=== PATIENT | female | born 1975 | race Caucasian/White ===

== ENCOUNTER 2020-05-06 17:41 | Inpatient (IN) | payer OTHER ==
[2020-05-06 18:38] VITALS: BMI 46.4
[2020-05-06] MEDS ORDERED: BISMUTH SUBSALICYLATE 524 MG/30 ML UD PO PRN (18:39)
[2020-05-06] MEDS ORDERED: ACETAMINOPHEN 325 MG TABLET (FP) PO PRN ×2 (18:39)
[2020-05-06] MEDS ORDERED: chlordiazePOXIDE HCL 25 MG CAPSULE PO PRN (18:39)
[2020-05-06] MEDS ORDERED: MAGNESIUM CITRATE 300 ML BOTTLE PO PRN (18:39)
[2020-05-06] MEDS ORDERED: IBUPROFEN 400 MG TABLET (FP) PO PRN (18:39)
[2020-05-06] MEDS ORDERED: NICOTINE POLACRILEX 4 MG GUM BUC PRN (18:39)
[2020-05-06] MEDS ORDERED: MENTHOL/PHENOL 1 EACH UD MM PRN (18:39)
[2020-05-06] MEDS ORDERED: ONDANSETRON *ODT* 4 MG TABLET SL PRN (18:39)
[2020-05-06] MEDS ORDERED: MAG HYDROX/AL HYDROX/SIMETH 30 ML UNIT-DOSE CUP PO PRN (18:39)
[2020-05-06] MEDS ORDERED: MAGNESIUM HYDROX 2400MG/30ML ORAL SUSPENSION 30 ML CUP PO PRN (18:39)
[2020-05-06] MEDS ORDERED: INSULIN (NOVOLOG) ASPART 100 UNITS/ML 10ML VIAL SQ ONE (21:32)
[2020-05-06] MEDS: GABAPENTIN 400 MG CAPSULE PO SCH (21:38)
[2020-05-06] MEDS: THIAMINE HCL 100 MG TABLET (FP) PO SCH (21:38)
[2020-05-06] MEDS: ATORVASTATIN CA 40 MG TABLET (FP) PO SCH (21:38)
[2020-05-06] MEDS: hydrOXYzine PAMOATE 25 MG CAPSULE (FP) PO SCH (21:39)
[2020-05-06] MEDS: chlordiazePOXIDE HCL 25 MG CAPSULE PO SCH (22:09)
[2020-05-06] MEDS: MELATONIN 5 MG TABLETS PO SCH (22:09)
[2020-05-06] MEDS: INSULIN SLIDING SCALE (NOVOLOG) 1 VIAL SQ SCH (22:15)
[2020-05-06] MEDS: NYSTATIN POWDER 100,000 UNITS/GM - 15 GM TOPICAL POWDER TP SCH (22:42)
[2020-05-07] MEDS: chlordiazePOXIDE HCL 25 MG CAPSULE PO SCH ×4 (06:59→22:40)
[2020-05-07] MEDS: INSULIN SLIDING SCALE (NOVOLOG) 1 VIAL SQ SCH ×3 (07:00→17:29)
[2020-05-07] MEDS ORDERED: metFORMIN HCL 500 MG TABLET (FP) PO SCH (07:00)
[2020-05-07] MEDS: GABAPENTIN 400 MG CAPSULE PO SCH ×3 (07:00→22:39)
[2020-05-07] MEDS: hydrOXYzine PAMOATE 25 MG CAPSULE (FP) PO SCH ×5 (07:01→22:39)
[2020-05-07] MEDS ORDERED: INSULIN SLIDING SCALE (NOVOLOG) 1 VIAL SQ ONE ×3 (07:48→17:10)
[2020-05-07] MEDS: PRENATAL VITAMINS W/ FOLIC ACID TABLET (FP) PO SCH (10:14)
[2020-05-07] MEDS: NYSTATIN POWDER 100,000 UNITS/GM - 15 GM TOPICAL POWDER TP SCH (10:14)
[2020-05-07 10:39] LABS: POTASSIUM 3.9 mmol/L (3.5-5.1)
[2020-05-07 10:42] LABS: HEMATOCRIT 35.1 % (32.4-45.2); HEMOGLOBIN 11.5 GM/dL (10.7-15.3); MCH 27.1 pg (25.7-33.7); MCHC 32.8 g/dl (32.0-36.0); MEAN CELL VOLUME 82.5 fl (80-96); MEAN PLT VOLUME 9.4 fl (7.5-11.1); PLATELET COUNT 240 K/MM3 (134-434); RBC 4.26 M/mm3 (3.60-5.2); RDW 15.1 % (11.6-15.6); WHITE BLOOD COUNT 5.2 K/mm3 (4.0-10.0)
[2020-05-07 10:49] LABS: TOT PROT 5.8 g/dl (6.4-8.2)
[2020-05-07 10:50] LABS: ALBUMIN 2.8 g/dl (3.4-5.0); BILIRUBIN,TOTAL 0.3 mg/dL (0.2-1); BLOOD UREA NITROGEN 9.2 mg/dL (7-18); CALCIUM 8.7 mg/dL (8.5-10.1)
[2020-05-07] MEDS ORDERED: INSULIN (NOVOLOG) ASPART 100 UNITS/ML 10ML VIAL SQ ONE (16:37)
[2020-05-07] MEDS ORDERED: metFORMIN HCL 500 MG TABLET (FP) PO ONE (16:41)
[2020-05-07] MEDS: ATORVASTATIN CA 40 MG TABLET (FP) PO SCH (22:39)
[2020-05-07] MEDS: INSULIN (LEVEMIR) 100 UNITS/ML UNITS SQ SCH (22:39)
[2020-05-07] MEDS: MELATONIN 5 MG TABLETS PO SCH (22:39)
[2020-05-07] MEDS: THIAMINE HCL 100 MG TABLET (FP) PO SCH (22:39)
[2020-05-08] MEDS: chlordiazePOXIDE HCL 25 MG CAPSULE PO SCH ×4 (06:59→22:42)
[2020-05-08] MEDS: GABAPENTIN 400 MG CAPSULE PO SCH ×3 (07:00→22:41)
[2020-05-08] MEDS: metFORMIN HCL 500 MG TABLET (FP) PO SCH ×2 (07:00→17:11)
[2020-05-08] MEDS: hydrOXYzine PAMOATE 25 MG CAPSULE (FP) PO SCH ×5 (07:00→22:41)
[2020-05-08] MEDS: INSULIN (NOVOLOG) ASPART 100 UNITS/ML 10ML VIAL SQ SCH ×3 (08:06→17:11)
[2020-05-08] MEDS ORDERED: INSULIN SLIDING SCALE (NOVOLOG) 1 VIAL SQ ONE ×3 (08:22→16:59)
[2020-05-08] MEDS: NYSTATIN POWDER 100,000 UNITS/GM - 15 GM TOPICAL POWDER TP SCH (10:13)
[2020-05-08] MEDS: PRENATAL VITAMINS W/ FOLIC ACID TABLET (FP) PO SCH (10:14)
[2020-05-08] MEDS: THIAMINE HCL 100 MG TABLET (FP) PO SCH (22:41)
[2020-05-08] MEDS: ATORVASTATIN CA 40 MG TABLET (FP) PO SCH (22:41)
[2020-05-08] MEDS: MELATONIN 5 MG TABLETS PO SCH (22:42)
[2020-05-08] MEDS: INSULIN (LEVEMIR) 100 UNITS/ML UNITS SQ SCH (22:42)
[2020-05-09] MEDS ORDERED: chlordiazePOXIDE HCL 10 MG CAPSULE PO PRN
[2020-05-09] MEDS ORDERED: INSULIN SLIDING SCALE (NOVOLOG) 1 VIAL SQ ONE ×3 (04:15→17:00)
[2020-05-09] MEDS: GABAPENTIN 400 MG CAPSULE PO SCH ×3 (06:35→23:17)
[2020-05-09] MEDS: chlordiazePOXIDE HCL 10 MG CAPSULE PO SCH ×5 (06:36→23:17)
[2020-05-09] MEDS: hydrOXYzine PAMOATE 25 MG CAPSULE (FP) PO SCH ×5 (06:36→23:18)
[2020-05-09] MEDS: INSULIN (NOVOLOG) ASPART 100 UNITS/ML 10ML VIAL SQ SCH ×3 (06:36→17:05)
[2020-05-09] MEDS: metFORMIN HCL 500 MG TABLET (FP) PO SCH ×2 (06:36→18:10)
[2020-05-09 10:09] LABS: SARS-CoV-2 NAA Not Detected (Not Detected)
[2020-05-09] MEDS: NYSTATIN POWDER 100,000 UNITS/GM - 15 GM TOPICAL POWDER TP SCH (10:30)
[2020-05-09] MEDS: PRENATAL VITAMINS W/ FOLIC ACID TABLET (FP) PO SCH (10:30)
[2020-05-09] MEDS: INSULIN (LEVEMIR) 100 UNITS/ML UNITS SQ SCH (23:17)
[2020-05-09] MEDS: ATORVASTATIN CA 40 MG TABLET (FP) PO SCH (23:17)
[2020-05-09] MEDS: MELATONIN 5 MG TABLETS PO SCH (23:17)
[2020-05-09] MEDS: THIAMINE HCL 100 MG TABLET (FP) PO SCH (23:18)
[2020-05-10] MEDS: GABAPENTIN 400 MG CAPSULE PO SCH ×3 (06:54→22:23)
[2020-05-10] MEDS: hydrOXYzine PAMOATE 25 MG CAPSULE (FP) PO SCH ×5 (06:54→22:23)
[2020-05-10] MEDS: chlordiazePOXIDE HCL 10 MG CAPSULE PO SCH ×2 (06:54→17:52)
[2020-05-10] MEDS: INSULIN (NOVOLOG) ASPART 100 UNITS/ML 10ML VIAL SQ SCH ×3 (08:03→17:59)
[2020-05-10] MEDS: metFORMIN HCL 500 MG TABLET (FP) PO SCH ×2 (08:03→17:52)
[2020-05-10] MEDS: PRENATAL VITAMINS W/ FOLIC ACID TABLET (FP) PO SCH (09:50)
[2020-05-10] MEDS: METHOCARBAMOL 500 MG TABLET PO PRN ×2 (09:52→22:29)
[2020-05-10] MEDS: NYSTATIN POWDER 100,000 UNITS/GM - 15 GM TOPICAL POWDER TP SCH (09:52)
[2020-05-10] MEDS: MELATONIN 5 MG TABLETS PO SCH (22:22)
[2020-05-10] MEDS: INSULIN (LEVEMIR) 100 UNITS/ML UNITS SQ SCH (22:23)
[2020-05-10] MEDS: ATORVASTATIN CA 40 MG TABLET (FP) PO SCH (22:23)
[2020-05-10] MEDS: THIAMINE HCL 100 MG TABLET (FP) PO SCH (22:23)
[2020-05-11] MEDS ORDERED: chlordiazePOXIDE HCL 10 MG CAPSULE PO ONE (05:00)
[2020-05-11] MEDS: GABAPENTIN 400 MG CAPSULE PO SCH (05:37)
[2020-05-11] MEDS: hydrOXYzine PAMOATE 25 MG CAPSULE (FP) PO SCH ×2 (05:37→09:40)
[2020-05-11] MEDS: metFORMIN HCL 500 MG TABLET (FP) PO SCH (07:29)
[2020-05-11] MEDS: INSULIN (NOVOLOG) ASPART 100 UNITS/ML 10ML VIAL SQ SCH ×2 (08:01→12:09)
[2020-05-11] MEDS ORDERED: INSULIN SLIDING SCALE (NOVOLOG) 1 VIAL SQ ONE ×2 (08:02→11:36)
[2020-05-11] MEDS: NYSTATIN POWDER 100,000 UNITS/GM - 15 GM TOPICAL POWDER TP SCH (09:38)
[2020-05-11] MEDS: PRENATAL VITAMINS W/ FOLIC ACID TABLET (FP) PO SCH ×2 (09:39→09:42)
[2020-05-11 09:41] VITALS: BP 96/54; PULSE 71; TEMP 96.8
[2020-05-11] MEDS ORDERED: NIFEdipine E.R. 30 MG TABLET PO SCH ×2 (11:45)
== END 2020-05-11 12:25 | disposition other institution (70) | DRG 774 ==
LOC: YASAS 17:41 → Y3N 19:24
PROVIDERS: ADMIT Allergy & Immunology; ATTEND Allergy & Immunology
PROC: HZ2ZZZZ Detoxification Services for Substance Abuse Treatment (ICD-10-PCS; principal; 2020-05-06)
DX: F10.230 Alcohol dependence with withdrawal, uncomplicated (principal); F14.20 Cocaine dependence, uncomplicated; F17.210 Nicotine dependence, cigarettes, uncomplicated; G62.9 Polyneuropathy, unspecified; E78.5 Hyperlipidemia, unspecified; I10 Essential (primary) hypertension; J45.909 Unspecified asthma, uncomplicated; K21.9 Gastro-esophageal reflux disease without esophagitis; E11.9 Type 2 diabetes mellitus without complications; Z79.4 Long term (current) use of insulin; Z88.8 Allergy status to other drugs, medicaments and biological substances
CPT/HCPCS: 36415; 80053; 81025; 82962; 85027; 86593; 86780; 93005; 93010; C9803; U0003; U0005

== ENCOUNTER 2020-05-11 12:33 | Inpatient (IN) | payer OTHER ==
[2020-05-11] MEDS ORDERED: ACETAMINOPHEN 325 MG TABLET (FP) PO PRN (13:18)
[2020-05-11] MEDS ORDERED: guaiFENesin 200 MG/10 ML 10 ML UNIT-DOSE CUPS PO PRN (13:18)
[2020-05-11] MEDS ORDERED: MENTHOL/PHENOL 1 EACH UD MM PRN (13:18)
[2020-05-11] MEDS ORDERED: MAG HYDROX/AL HYDROX/SIMETH 30 ML UNIT-DOSE CUP PO PRN (13:18)
[2020-05-11] MEDS ORDERED: MAGNESIUM HYDROX 2400MG/30ML ORAL SUSPENSION 30 ML CUP PO PRN (13:18)
[2020-05-11] MEDS ORDERED: LOPERAMIDE HCL 2 MG CAPSULE PO PRN (13:18)
[2020-05-11] MEDS ORDERED: MAGNESIUM CITRATE 300 ML BOTTLE PO PRN (13:18)
[2020-05-11] MEDS ORDERED: P-EPHED 60MG/TRIPROLIDI 2.5MG TABLET PO PRN (13:18)
[2020-05-11] MEDS: INSULIN (NOVOLOG) ASPART 100 UNITS/ML 10ML VIAL SQ SCH (17:09)
[2020-05-11] MEDS: metFORMIN HCL 500 MG TABLET (FP) PO SCH (17:09)
[2020-05-11] MEDS: INSULIN (LEVEMIR) 100 UNITS/ML UNITS SQ SCH (21:47)
[2020-05-11] MEDS: ATORVASTATIN CA 40 MG TABLET (FP) PO SCH (21:48)
[2020-05-11] MEDS: THIAMINE HCL 100 MG TABLET (FP) PO SCH (21:48)
[2020-05-11] MEDS: GABAPENTIN 400 MG CAPSULE PO SCH (21:48)
[2020-05-11] MEDS: METHOCARBAMOL 500 MG TABLET PO PRN (21:49)
[2020-05-11] MEDS: MELATONIN 5 MG TABLETS PO SCH (21:50)
[2020-05-12] MEDS: metFORMIN HCL 500 MG TABLET (FP) PO SCH ×2 (06:50→17:03)
[2020-05-12] MEDS: GABAPENTIN 400 MG CAPSULE PO SCH ×3 (06:50→21:35)
[2020-05-12] MEDS: hydrOXYzine PAMOATE 25 MG CAPSULE (FP) PO PRN ×2 (06:52→14:34)
[2020-05-12] MEDS: METHOCARBAMOL 500 MG TABLET PO PRN ×2 (06:52→17:04)
[2020-05-12] MEDS: INSULIN (NOVOLOG) ASPART 100 UNITS/ML 10ML VIAL SQ SCH ×4 (07:42→21:38)
[2020-05-12] MEDS: NICOTINE 7 MG/24 HOURS TOPICAL PATCH TD SCH (09:54)
[2020-05-12] MEDS: NICOTINE POLACRILEX 2 MG GUM BUC PRN (09:54)
[2020-05-12] MEDS: PRENATAL VITAMINS W/ FOLIC ACID TABLET (FP) PO SCH (09:54)
[2020-05-12] MEDS: NIFEdipine E.R. 30 MG TABLET PO SCH (11:16)
[2020-05-12] MEDS: LITHIUM CARBONATE 300 MG CAPSULE PO SCH ×2 (11:46→21:36)
[2020-05-12 13:55] LABS: HIV INTERPRETATION NEGATIVE (NEGATIVE)
[2020-05-12] MEDS: THIAMINE HCL 100 MG TABLET (FP) PO SCH (21:35)
[2020-05-12] MEDS: MELATONIN 5 MG TABLETS PO SCH (21:35)
[2020-05-12] MEDS: ATORVASTATIN CA 40 MG TABLET (FP) PO SCH (21:35)
[2020-05-12] MEDS: MIRTAZAPINE 30 MG TABLET PO SCH (21:36)
[2020-05-12] MEDS: IBUPROFEN 400 MG TABLET (FP) PO PRN (21:36)
[2020-05-12] MEDS: INSULIN (LEVEMIR) 100 UNITS/ML UNITS SQ SCH (21:41)
[2020-05-13] MEDS: metFORMIN HCL 500 MG TABLET (FP) PO SCH ×2 (07:30→17:40)
[2020-05-13] MEDS: GABAPENTIN 400 MG CAPSULE PO SCH ×3 (07:30→21:27)
[2020-05-13] MEDS: INSULIN (NOVOLOG) ASPART 100 UNITS/ML 10ML VIAL SQ SCH (07:32)
[2020-05-13] MEDS: PRENATAL VITAMINS W/ FOLIC ACID TABLET (FP) PO SCH (09:50)
[2020-05-13] MEDS: NICOTINE 7 MG/24 HOURS TOPICAL PATCH TD SCH (09:50)
[2020-05-13] MEDS: NIFEdipine E.R. 30 MG TABLET PO SCH (09:51)
[2020-05-13] MEDS: LITHIUM CARBONATE 300 MG CAPSULE PO SCH ×2 (09:51→21:27)
[2020-05-13] MEDS: hydrOXYzine PAMOATE 25 MG CAPSULE (FP) PO PRN ×2 (09:52→21:29)
[2020-05-13] MEDS: IBUPROFEN 400 MG TABLET (FP) PO PRN (09:52)
[2020-05-13] MEDS: METHOCARBAMOL 500 MG TABLET PO PRN ×2 (09:52→21:28)
[2020-05-13] MEDS: INSULIN SLIDING SCALE (NOVOLOG) 1 VIAL SQ SCH ×3 (11:44→22:11)
[2020-05-13] MEDS ORDERED: INSULIN (NOVOLOG) ASPART 100 UNITS/ML 10ML VIAL ONE ×3 (11:44→22:07)
[2020-05-13] MEDS ORDERED: PT OWN MED DRAWER 7, Y5N ONE (19:32)
[2020-05-13] MEDS: THIAMINE HCL 100 MG TABLET (FP) PO SCH (21:27)
[2020-05-13] MEDS: MIRTAZAPINE 30 MG TABLET PO SCH (21:27)
[2020-05-13] MEDS: ATORVASTATIN CA 40 MG TABLET (FP) PO SCH (21:27)
[2020-05-13] MEDS: MELATONIN 5 MG TABLETS PO SCH (21:27)
[2020-05-13] MEDS: INSULIN (LEVEMIR) 100 UNITS/ML UNITS SQ SCH (22:15)
[2020-05-14 06:52] VITALS: TEMP 97.8
[2020-05-14] MEDS: metFORMIN HCL 500 MG TABLET (FP) PO SCH ×2 (06:55→16:58)
[2020-05-14] MEDS: hydrOXYzine PAMOATE 25 MG CAPSULE (FP) PO PRN (06:55)
[2020-05-14] MEDS: METHOCARBAMOL 500 MG TABLET PO PRN (06:55)
[2020-05-14] MEDS: GABAPENTIN 400 MG CAPSULE PO SCH ×2 (06:55→15:47)
[2020-05-14] MEDS: INSULIN SLIDING SCALE (NOVOLOG) 1 VIAL SQ SCH ×3 (07:36→16:58)
[2020-05-14] MEDS: PRENATAL VITAMINS W/ FOLIC ACID TABLET (FP) PO SCH (09:49)
[2020-05-14] MEDS: NICOTINE 7 MG/24 HOURS TOPICAL PATCH TD SCH (09:49)
[2020-05-14] MEDS: LITHIUM CARBONATE 300 MG CAPSULE PO SCH (09:50)
[2020-05-14] MEDS: NIFEdipine E.R. 30 MG TABLET PO SCH (09:51)
[2020-05-14] MEDS: NICOTINE POLACRILEX 2 MG GUM BUC PRN (09:52)
[2020-05-14] MEDS ORDERED: INSULIN (NOVOLOG) ASPART 100 UNITS/ML 10ML VIAL ONE ×2 (12:11→16:41)
[2020-05-14 16:27] VITALS: BP 108/54; PULSE 96
[2020-05-15 10:11] LABS: SARS-CoV-2 NAA Not Detected (Not Detected)
== END 2020-05-14 18:29 | disposition left against medical advice (07) | DRG 770 ==
LOC: YASAS 12:33 → Y5N 12:34
PROVIDERS: ADMIT Allergy & Immunology; ATTEND Allergy & Immunology
PROC: HZ42ZZZ Group Counseling for Substance Abuse Treatment, Cognitive-Behavioral (ICD-10-PCS; principal; 2020-05-11)
DX: F10.20 Alcohol dependence, uncomplicated (principal); F14.20 Cocaine dependence, uncomplicated; F17.210 Nicotine dependence, cigarettes, uncomplicated; F18.2 Inhalant dependence; F19.282 Other psychoactive substance dependence with psychoactive substance-induced sleep disorder; F90.9 Attention-deficit hyperactivity disorder, unspecified type; F43.10 Post-traumatic stress disorder, unspecified; E11.65 Type 2 diabetes mellitus with hyperglycemia; Z79.84 Long term (current) use of oral hypoglycemic drugs; G62.9 Polyneuropathy, unspecified; E78.5 Hyperlipidemia, unspecified; I10 Essential (primary) hypertension; K21.9 Gastro-esophageal reflux disease without esophagitis; Z62.810 Personal history of physical and sexual abuse in childhood; E66.01 Morbid (severe) obesity due to excess calories; Z68.42 Body mass index [BMI] 45.0-49.9, adult; Z88.8 Allergy status to other drugs, medicaments and biological substances
CPT/HCPCS: 36415; 82962; 87389; C9803; U0003; U0005

== ENCOUNTER 2021-07-28 13:35 | Inpatient (IN) | payer OTHER ==
[2021-07-28 15:07] VITALS: BMI 48.5
[2021-07-28] MEDS ORDERED: chlordiazePOXIDE HCL 25 MG CAPSULE PO PRN (15:20)
[2021-07-28] MEDS ORDERED: DICYCLOMINE HCL 10 MG CAPSULE PO PRN (15:20)
[2021-07-28] MEDS ORDERED: MAGNESIUM HYDROX 2400MG/30ML ORAL SUSPENSION 30 ML CUP PO PRN (15:20)
[2021-07-28] MEDS ORDERED: MAGNESIUM CITRATE 300 ML BOTTLE PO PRN (15:20)
[2021-07-28] MEDS ORDERED: NICOTINE POLACRILEX 4 MG GUM BUC PRN (15:20)
[2021-07-28] MEDS ORDERED: NICOTINE 10 MG CARTRIDGE (INHALER) IH PRN (15:20)
[2021-07-28] MEDS ORDERED: MAG HYDROX/AL HYDROX/SIMETH 30 ML UNIT-DOSE CUP PO PRN (15:20)
[2021-07-28] MEDS ORDERED: BENZOCAINE/MENTHOL (CHLORASEPTIC ) LOZENGE MM PRN (15:20)
[2021-07-28] MEDS ORDERED: ACETAMINOPHEN 325 MG TABLET (FP) PO PRN ×2 (15:20)
[2021-07-28] MEDS ORDERED: LOPERAMIDE HCL 2 MG CAPSULE PO PRN (15:20)
[2021-07-28] MEDS ORDERED: IBUPROFEN 400 MG TABLET (FP) PO PRN (15:20)
[2021-07-28] MEDS ORDERED: ONDANSETRON *ODT* 4 MG TABLET SL PRN (15:20)
[2021-07-28] MEDS ORDERED: BISMUTH SUBSALICYLATE 262 MG/15 ML BTL PO PRN (15:20)
[2021-07-28] MEDS ORDERED: chlordiazePOXIDE HCL 25 MG CAPSULE ONE (16:08)
[2021-07-28] MEDS: chlordiazePOXIDE HCL 25 MG CAPSULE PO SCH ×2 (16:12→22:35)
[2021-07-28] MEDS: AMOX TR/POT CLAV 500MG/125MG TABLETS (FP) PO SCH (18:30)
[2021-07-28] MEDS: hydrOXYzine PAMOATE 25 MG CAPSULE (FP) PO SCH ×2 (18:46→22:35)
[2021-07-28] MEDS: PRENATAL VITAMINS W/ FOLIC ACID TABLET (FP) PO SCH (18:49)
[2021-07-28] MEDS: METHOCARBAMOL 500 MG TABLET PO PRN (18:49)
[2021-07-28] MEDS: THIAMINE HCL 100 MG TABLET (FP) PO SCH (22:35)
[2021-07-28] MEDS: MELATONIN 5 MG TABLETS PO SCH (22:35)
[2021-07-28] MEDS: BACITRACIN/POLYMYXIN B SULFATE 15 GM TUBE TP SCH (22:35)
[2021-07-29] MEDS: chlordiazePOXIDE HCL 25 MG CAPSULE PO SCH ×4 (06:18→22:36)
[2021-07-29] MEDS: hydrOXYzine PAMOATE 25 MG CAPSULE (FP) PO SCH ×5 (06:18→22:36)
[2021-07-29] MEDS: AMOX TR/POT CLAV 500MG/125MG TABLETS (FP) PO SCH ×2 (07:14→17:57)
[2021-07-29] MEDS: FLUoxetine HCL 20 MG CAPSULE PO SCH (12:39)
[2021-07-29] MEDS: BACITRACIN/POLYMYXIN B SULFATE 15 GM TUBE TP SCH ×2 (12:39→22:37)
[2021-07-29] MEDS: PRENATAL VITAMINS W/ FOLIC ACID TABLET (FP) PO SCH (12:40)
[2021-07-29] MEDS: LITHIUM CARBONATE 300 MG CAPSULE PO SCH ×2 (12:42→22:36)
[2021-07-29] MEDS ORDERED: FUROSEMIDE 20 MG TABLET (FP) PO SCH (13:30)
[2021-07-29] MEDS ORDERED: ALBUTEROL SO4 HFA INHALER IH PRN (14:39)
[2021-07-29] MEDS: LEVOTHYROXINE NA 25 MCG TABLET (FP) PO SCH (14:53)
[2021-07-29 16:08] LABS: CHLORIDE 104 mmol/L (98-107); SODIUM 136 mmol/L (136-145)
[2021-07-29 16:09] LABS: HEMATOCRIT 35.6 % (32.4-45.2); HEMOGLOBIN 11.1 GM/dL (10.7-15.3); MCH 25.7 pg (25.7-33.7); MCHC 31.2 g/dl (32.0-36.0); MEAN CELL VOLUME 82.4 fl (80-96); MEAN PLT VOLUME 9.8 fl (7.5-11.1); PLATELET COUNT 292 10^3/uL (134-434); RBC 4.32 M/mm3 (3.60-5.2); RDW 17.5 % (11.6-15.6); WHITE BLOOD COUNT 7.1 K/mm3 (4.0-10.0)
[2021-07-29 16:13] LABS: CALCIUM 8.8 mg/dL (8.5-10.1)
[2021-07-29 16:14] LABS: ALBUMIN 2.9 g/dl (3.4-5.0); ANION GAP 7 MMOL/L (8-16); CO2 25 mmol/L (21-32)
[2021-07-29 16:17] LABS: CREATININE 1.3 mg/dL (0.55-1.3); SGOT/AST 15 U/L (15-37); SGPT/ALT 36 U/L (13-61)
[2021-07-29 16:20] LABS: ALK PHOS 94 U/L (45-117); BILIRUBIN,TOTAL 0.2 mg/dL (0.2-1); TOT PROT 6.2 g/dl (6.4-8.2)
[2021-07-29 16:33] LABS: GLUCOSE,RANDOM 542 mg/dL (74-106)
[2021-07-29] MEDS: INSULIN SLIDING SCALE (NOVOLOG) 1 VIAL SQ SCH (17:56)
[2021-07-29] MEDS: THIAMINE HCL 100 MG TABLET (FP) PO SCH (22:36)
[2021-07-29] MEDS: MELATONIN 5 MG TABLETS PO SCH (22:37)
[2021-07-29] MEDS: INSULIN (LEVEMIR) 100 UNITS/ML UNITS SQ SCH ×2 (22:37→23:55)
[2021-07-29] MEDS ORDERED: INSULIN (NOVOLOG) ASPART 100 UNITS/ML 10ML VIAL SQ ONE (23:28)
[2021-07-30] MEDS ORDERED: INSULIN SLIDING SCALE (NOVOLOG) 1 VIAL SQ ONE (06:30)
[2021-07-30] MEDS: chlordiazePOXIDE HCL 25 MG CAPSULE PO SCH ×4 (06:38→23:29)
[2021-07-30] MEDS: hydrOXYzine PAMOATE 25 MG CAPSULE (FP) PO SCH ×5 (06:38→23:29)
[2021-07-30] MEDS: LEVOTHYROXINE NA 25 MCG TABLET (FP) PO SCH (06:40)
[2021-07-30] MEDS: INSULIN SLIDING SCALE (NOVOLOG) 1 VIAL SQ SCH ×3 (07:00→17:39)
[2021-07-30] MEDS: AMOX TR/POT CLAV 500MG/125MG TABLETS (FP) PO SCH ×2 (07:39→17:41)
[2021-07-30] MEDS ORDERED: LISINOPRIL 20 MG TABLET PO SCH (10:00)
[2021-07-30] MEDS: PRENATAL VITAMINS W/ FOLIC ACID TABLET (FP) PO SCH (10:47)
[2021-07-30] MEDS: LOSARTAN POTASSIUM 50 MG TABLET PO SCH (10:47)
[2021-07-30] MEDS: LITHIUM CARBONATE 300 MG CAPSULE PO SCH ×2 (10:47→23:28)
[2021-07-30] MEDS: FLUoxetine HCL 20 MG CAPSULE PO SCH (10:48)
[2021-07-30] MEDS: BACITRACIN/POLYMYXIN B SULFATE 15 GM TUBE TP SCH ×2 (10:48→23:54)
[2021-07-30] MEDS: THIAMINE HCL 100 MG TABLET (FP) PO SCH (23:29)
[2021-07-30] MEDS: INSULIN (LEVEMIR) 100 UNITS/ML UNITS SQ SCH (23:29)
[2021-07-30] MEDS: MELATONIN 5 MG TABLETS PO SCH (23:29)
[2021-07-31] MEDS ORDERED: chlordiazePOXIDE HCL 10 MG CAPSULE PO PRN
[2021-07-31] MEDS: hydrOXYzine PAMOATE 25 MG CAPSULE (FP) PO SCH ×5 (06:26→21:34)
[2021-07-31] MEDS: chlordiazePOXIDE HCL 10 MG CAPSULE PO SCH ×4 (06:26→22:33)
[2021-07-31] MEDS: LEVOTHYROXINE NA 25 MCG TABLET (FP) PO SCH (06:26)
[2021-07-31] MEDS: METHOCARBAMOL 500 MG TABLET PO PRN (10:59)
[2021-07-31] MEDS: LOSARTAN POTASSIUM 50 MG TABLET PO SCH (10:59)
[2021-07-31] MEDS: FLUoxetine HCL 20 MG CAPSULE PO SCH (10:59)
[2021-07-31] MEDS: PRENATAL VITAMINS W/ FOLIC ACID TABLET (FP) PO SCH (10:59)
[2021-07-31] MEDS: AMOX TR/POT CLAV 500MG/125MG TABLETS (FP) PO SCH ×2 (10:59→17:46)
[2021-07-31] MEDS: LITHIUM CARBONATE 300 MG CAPSULE PO SCH ×2 (10:59→21:34)
[2021-07-31] MEDS: BACITRACIN/POLYMYXIN B SULFATE 15 GM TUBE TP SCH ×2 (11:00→21:34)
[2021-07-31] MEDS: INSULIN SLIDING SCALE (NOVOLOG) 1 VIAL SQ SCH (11:15)
[2021-07-31] MEDS: INSULIN (NOVOLOG) ASPART 100 UNITS/ML 10ML VIAL SQ SCH (17:48)
[2021-07-31] MEDS: MELATONIN 5 MG TABLETS PO SCH (21:34)
[2021-07-31] MEDS: INSULIN (LEVEMIR) 100 UNITS/ML UNITS SQ SCH (21:34)
[2021-07-31] MEDS: THIAMINE HCL 100 MG TABLET (FP) PO SCH (21:34)
[2021-08-01] MEDS: chlordiazePOXIDE HCL 10 MG CAPSULE PO SCH ×2 (07:26→17:32)
[2021-08-01] MEDS: hydrOXYzine PAMOATE 25 MG CAPSULE (FP) PO SCH ×5 (07:26→23:06)
[2021-08-01] MEDS: LEVOTHYROXINE NA 25 MCG TABLET (FP) PO SCH (07:58)
[2021-08-01] MEDS: INSULIN (NOVOLOG) ASPART 100 UNITS/ML 10ML VIAL SQ SCH ×4 (08:27→17:30)
[2021-08-01] MEDS: PRENATAL VITAMINS W/ FOLIC ACID TABLET (FP) PO SCH (10:55)
[2021-08-01] MEDS: LOSARTAN POTASSIUM 50 MG TABLET PO SCH (10:55)
[2021-08-01] MEDS: AMOX TR/POT CLAV 500MG/125MG TABLETS (FP) PO SCH ×2 (10:55→17:31)
[2021-08-01] MEDS: FLUoxetine HCL 20 MG CAPSULE PO SCH (10:55)
[2021-08-01] MEDS: LITHIUM CARBONATE 300 MG CAPSULE PO SCH ×2 (10:55→23:05)
[2021-08-01] MEDS: BACITRACIN/POLYMYXIN B SULFATE 15 GM TUBE TP SCH ×2 (10:56→23:06)
[2021-08-01] MEDS ORDERED: INSULIN SLIDING SCALE (NOVOLOG) 1 VIAL SQ ONE (17:13)
[2021-08-01] MEDS: IBUPROFEN 600 MG TABLET (FP) PO PRN (17:31)
[2021-08-01] MEDS: METHOCARBAMOL 500 MG TABLET PO PRN (23:04)
[2021-08-01] MEDS: INSULIN (LEVEMIR) 100 UNITS/ML UNITS SQ SCH (23:05)
[2021-08-01] MEDS: MELATONIN 5 MG TABLETS PO SCH (23:05)
[2021-08-01] MEDS: THIAMINE HCL 100 MG TABLET (FP) PO SCH (23:06)
[2021-08-02] MEDS ORDERED: chlordiazePOXIDE HCL 10 MG CAPSULE PO ONE (05:00)
[2021-08-02] MEDS: INSULIN (NOVOLOG) ASPART 100 UNITS/ML 10ML VIAL SQ SCH ×3 (06:14→17:57)
[2021-08-02] MEDS: LEVOTHYROXINE NA 25 MCG TABLET (FP) PO SCH (06:51)
[2021-08-02] MEDS: hydrOXYzine PAMOATE 25 MG CAPSULE (FP) PO SCH ×5 (06:51→22:38)
[2021-08-02] MEDS: AMOX TR/POT CLAV 500MG/125MG TABLETS (FP) PO SCH ×2 (07:30→17:57)
[2021-08-02] MEDS: LOSARTAN POTASSIUM 50 MG TABLET PO SCH (10:42)
[2021-08-02] MEDS: FLUoxetine HCL 20 MG CAPSULE PO SCH (10:42)
[2021-08-02] MEDS: LITHIUM CARBONATE 300 MG CAPSULE PO SCH ×2 (10:42→22:37)
[2021-08-02] MEDS: PRENATAL VITAMINS W/ FOLIC ACID TABLET (FP) PO SCH (10:42)
[2021-08-02] MEDS: BACITRACIN/POLYMYXIN B SULFATE 15 GM TUBE TP SCH ×2 (10:43→22:53)
[2021-08-02] MEDS: IBUPROFEN 600 MG TABLET (FP) PO PRN (22:37)
[2021-08-02] MEDS: INSULIN (LEVEMIR) 100 UNITS/ML UNITS SQ SCH (22:38)
[2021-08-02] MEDS: METHOCARBAMOL 500 MG TABLET PO PRN (22:38)
[2021-08-02] MEDS: THIAMINE HCL 100 MG TABLET (FP) PO SCH (22:38)
[2021-08-02] MEDS: MELATONIN 5 MG TABLETS PO SCH (22:38)
[2021-08-03] MEDS: hydrOXYzine PAMOATE 25 MG CAPSULE (FP) PO SCH ×4 (06:44→14:48)
[2021-08-03] MEDS: LEVOTHYROXINE NA 25 MCG TABLET (FP) PO SCH (06:44)
[2021-08-03] MEDS: INSULIN (NOVOLOG) ASPART 100 UNITS/ML 10ML VIAL SQ SCH ×3 (06:49→17:50)
[2021-08-03] MEDS: AMOX TR/POT CLAV 500MG/125MG TABLETS (FP) PO SCH ×2 (08:58→17:56)
[2021-08-03] MEDS: LITHIUM CARBONATE 300 MG CAPSULE PO SCH ×3 (10:39→22:34)
[2021-08-03] MEDS: LOSARTAN POTASSIUM 50 MG TABLET PO SCH ×2 (10:39→11:02)
[2021-08-03] MEDS: FLUoxetine HCL 20 MG CAPSULE PO SCH ×2 (10:39→11:02)
[2021-08-03] MEDS: PRENATAL VITAMINS W/ FOLIC ACID TABLET (FP) PO SCH ×2 (10:39→11:02)
[2021-08-03] MEDS: BACITRACIN/POLYMYXIN B SULFATE 15 GM TUBE TP SCH ×2 (10:40→22:34)
[2021-08-03] MEDS ORDERED: INSULIN SLIDING SCALE (NOVOLOG) 1 VIAL SQ ONE (18:40)
[2021-08-03] MEDS: THIAMINE HCL 100 MG TABLET (FP) PO SCH (22:34)
[2021-08-03] MEDS: MELATONIN 5 MG TABLETS PO SCH (22:34)
[2021-08-03] MEDS: INSULIN (LEVEMIR) 100 UNITS/ML UNITS SQ SCH (22:34)
[2021-08-03] MEDS: IBUPROFEN 600 MG TABLET (FP) PO PRN (22:35)
[2021-08-04] MEDS: LEVOTHYROXINE NA 25 MCG TABLET (FP) PO SCH (07:14)
[2021-08-04] MEDS: AMOX TR/POT CLAV 500MG/125MG TABLETS (FP) PO SCH (07:14)
[2021-08-04] MEDS: INSULIN (NOVOLOG) ASPART 100 UNITS/ML 10ML VIAL SQ SCH ×3 (07:20→18:07)
[2021-08-04] MEDS: BACITRACIN/POLYMYXIN B SULFATE 15 GM TUBE TP SCH ×2 (11:06→23:31)
[2021-08-04] MEDS: LOSARTAN POTASSIUM 50 MG TABLET PO SCH (11:06)
[2021-08-04] MEDS: LITHIUM CARBONATE 300 MG CAPSULE PO SCH ×2 (11:06→23:29)
[2021-08-04] MEDS: FLUoxetine HCL 20 MG CAPSULE PO SCH (11:06)
[2021-08-04] MEDS: PRENATAL VITAMINS W/ FOLIC ACID TABLET (FP) PO SCH (11:07)
[2021-08-04] MEDS ORDERED: INSULIN SLIDING SCALE (NOVOLOG) 1 VIAL SQ ONE (16:55)
[2021-08-04 21:07] VITALS: BP 127/77; PULSE 88; TEMP 97.5
[2021-08-04] MEDS: INSULIN (LEVEMIR) 100 UNITS/ML UNITS SQ SCH (23:30)
[2021-08-04] MEDS: MELATONIN 5 MG TABLETS PO SCH (23:30)
[2021-08-04] MEDS: THIAMINE HCL 100 MG TABLET (FP) PO SCH (23:31)
== END 2021-08-04 23:40 | disposition left against medical advice (07) | DRG 770 ==
LOC: EDBD → YASAS 13:35 → Y6N 15:33 → Y3N 07-30 00:26
PROVIDERS: ADMIT Allergy & Immunology; ATTEND Surgery
PROC: HZ2ZZZZ Detoxification Services for Substance Abuse Treatment (ICD-10-PCS; principal; 2021-07-28)
DX: F14.20 Cocaine dependence, uncomplicated (principal); F17.210 Nicotine dependence, cigarettes, uncomplicated; F19.282 Other psychoactive substance dependence with psychoactive substance-induced sleep disorder; F19.280 Other psychoactive substance dependence with psychoactive substance-induced anxiety disorder; F90.9 Attention-deficit hyperactivity disorder, unspecified type; F31.9 Bipolar disorder, unspecified; F43.10 Post-traumatic stress disorder, unspecified; I10 Essential (primary) hypertension; E78.5 Hyperlipidemia, unspecified; J45.20 Mild intermittent asthma, uncomplicated; K21.9 Gastro-esophageal reflux disease without esophagitis; G62.9 Polyneuropathy, unspecified; R00.0 Tachycardia, unspecified; E66.01 Morbid (severe) obesity due to excess calories; Z68.42 Body mass index [BMI] 45.0-49.9, adult; Z88.8 Allergy status to other drugs, medicaments and biological substances; Z62.810 Personal history of physical and sexual abuse in childhood; Z79.4 Long term (current) use of insulin; Z86.19 Personal history of other infectious and parasitic diseases; Z20.822 Contact with and (suspected) exposure to COVID-19; Z91.51 Personal history of suicidal behavior; Z56.0 Unemployment, unspecified
CPT/HCPCS: 36415; 80053; 80178; 81025; 82962; 85027; 86593; 86780; 87811; C9803-CS; U0003; U0005

== ENCOUNTER 2021-08-31 09:59 | Inpatient (IN) | payer OTHER ==
[2021-08-31 10:58] VITALS: BMI 46.0
[2021-08-31] MEDS ORDERED: MAG HYDROX/AL HYDROX/SIMETH 30 ML UNIT-DOSE CUP PO PRN (11:41)
[2021-08-31] MEDS ORDERED: ACETAMINOPHEN 325 MG TABLET (FP) PO PRN ×2 (11:41)
[2021-08-31] MEDS ORDERED: NICOTINE 10 MG CARTRIDGE (INHALER) IH PRN (11:41)
[2021-08-31] MEDS ORDERED: MAGNESIUM CITRATE 300 ML BOTTLE PO PRN (11:41)
[2021-08-31] MEDS ORDERED: ONDANSETRON *ODT* 4 MG TABLET SL PRN (11:41)
[2021-08-31] MEDS ORDERED: BISMUTH SUBSALICYLATE 524 MG/30 ML PO PRN (11:41)
[2021-08-31] MEDS ORDERED: chlordiazePOXIDE HCL 25 MG CAPSULE PO PRN (11:41)
[2021-08-31] MEDS ORDERED: IBUPROFEN 400 MG TABLET (FP) PO PRN (11:41)
[2021-08-31] MEDS ORDERED: MAGNESIUM HYDROX 2400MG/30ML ORAL SUSPENSION 30 ML CUP PO PRN (11:41)
[2021-08-31] MEDS ORDERED: DICYCLOMINE HCL 10 MG CAPSULE PO PRN (11:41)
[2021-08-31] MEDS ORDERED: NICOTINE POLACRILEX 2 MG GUM BUC PRN (11:41)
[2021-08-31] MEDS ORDERED: BENZOCAINE/MENTHOL (CHLORASEPTIC ) LOZENGE MM PRN (11:41)
[2021-08-31] MEDS ORDERED: IBUPROFEN 600 MG TABLET (FP) PO PRN (11:41)
[2021-08-31] MEDS ORDERED: LOPERAMIDE HCL 2 MG CAPSULE PO PRN (11:41)
[2021-08-31] MEDS ORDERED: ALBUTEROL SO4 HFA INHALER IH PRN (11:55)
[2021-08-31] MEDS ORDERED: lamoTRIgine 25 MG TABLET PO SCH (12:00)
[2021-08-31] MEDS: LEVOTHYROXINE NA 25 MCG TABLET (FP) PO SCH (13:57)
[2021-08-31] MEDS: FLUoxetine HCL 20 MG CAPSULE PO SCH (13:57)
[2021-08-31] MEDS: PANTOPRAZOLE 20 MG TABLET PO SCH (13:57)
[2021-08-31] MEDS: LOSARTAN POTASSIUM 50 MG TABLET PO SCH (13:57)
[2021-08-31] MEDS: FUROSEMIDE 20 MG TABLET (FP) PO SCH (13:57)
[2021-08-31] MEDS: LISINOPRIL 20 MG TABLET PO SCH (13:57)
[2021-08-31] MEDS: hydrOXYzine PAMOATE 25 MG CAPSULE (FP) PO SCH ×2 (13:57→18:51)
[2021-08-31] MEDS: PRENATAL VITAMINS W/ FOLIC ACID TABLET (FP) PO SCH (13:58)
[2021-08-31] MEDS: LITHIUM CARBONATE 300 MG CAPSULE PO SCH (14:02)
[2021-08-31] MEDS: LAMOTRIGINE PO SCH (14:02)
[2021-08-31 15:21] LABS: MCH 25.6 pg (25.7-33.7); MCHC 31.4 g/dl (32.0-36.0); MEAN CELL VOLUME 81.5 fl (80-96); MEAN PLT VOLUME 9.4 fl (7.5-11.1); PLATELET COUNT 265 10^3/uL (134-434); RDW 16.9 % (11.6-15.6); WHITE BLOOD COUNT 7.5 K/mm3 (4.0-10.0)
[2021-08-31 15:28] LABS: CALCIUM 8.4 mg/dL (8.5-10.1)
[2021-08-31 15:29] LABS: BLOOD UREA NITROGEN 7.2 mg/dL (7-18)
[2021-08-31 15:33] LABS: TOT PROT 6.1 g/dl (6.4-8.2)
[2021-08-31 15:34] LABS: BILIRUBIN,TOTAL 0.2 mg/dL (0.2-1)
[2021-08-31] MEDS: chlordiazePOXIDE HCL 25 MG CAPSULE PO SCH (18:51)
[2021-09-01] MEDS: LITHIUM CARBONATE 300 MG CAPSULE PO SCH ×2 (00:03→10:43)
[2021-09-01] MEDS: chlordiazePOXIDE HCL 25 MG CAPSULE PO SCH ×5 (00:03→23:06)
[2021-09-01] MEDS: THIAMINE HCL 100 MG TABLET (FP) PO SCH ×2 (00:04→23:06)
[2021-09-01] MEDS: MELATONIN 5 MG TABLETS PO SCH ×2 (00:04→23:06)
[2021-09-01] MEDS: PANTOPRAZOLE 20 MG TABLET PO SCH ×2 (00:04→11:54)
[2021-09-01] MEDS: hydrOXYzine PAMOATE 25 MG CAPSULE (FP) PO SCH ×6 (00:04→23:06)
[2021-09-01] MEDS: LEVOTHYROXINE NA 25 MCG TABLET (FP) PO SCH (06:06)
[2021-09-01] MEDS: FLUoxetine HCL 20 MG CAPSULE PO SCH (10:42)
[2021-09-01] MEDS: LISINOPRIL 20 MG TABLET PO SCH (10:42)
[2021-09-01] MEDS: METHOCARBAMOL 500 MG TABLET PO PRN ×2 (10:43→18:42)
[2021-09-01] MEDS: PRENATAL VITAMINS W/ FOLIC ACID TABLET (FP) PO SCH (10:43)
[2021-09-01] MEDS: LAMOTRIGINE PO SCH (10:44)
[2021-09-01] MEDS: FUROSEMIDE 20 MG TABLET (FP) PO SCH (10:44)
[2021-09-01] MEDS: LOSARTAN POTASSIUM 50 MG TABLET PO SCH (10:47)
[2021-09-01] MEDS ORDERED: FLUoxetine HCL 10 MG CAPSULE PO SCH (11:15)
[2021-09-01] MEDS: metFORMIN HCL 500 MG TABLET (FP) PO SCH (11:48)
[2021-09-01] MEDS: INSULIN SLIDING SCALE (NOVOLOG) 1 VIAL SQ SCH ×2 (11:49→18:42)
[2021-09-01] MEDS ORDERED: INSULIN (NOVOLOG) ASPART 100 UNITS/ML 10ML VIAL ONE (18:41)
[2021-09-02] MEDS: LITHIUM CARBONATE 300 MG CAPSULE PO SCH ×3 (00:39→23:03)
[2021-09-02] MEDS: INSULIN SLIDING SCALE (NOVOLOG) 1 VIAL SQ SCH ×4 (00:39→20:33)
[2021-09-02] MEDS: PANTOPRAZOLE 20 MG TABLET PO SCH ×3 (00:40→23:02)
[2021-09-02] MEDS: CALCIUM 500MG/VIT-D 200 UNITS COMBO TABLET (FP) PO SCH ×2 (00:40→23:02)
[2021-09-02] MEDS: metFORMIN HCL 500 MG TABLET (FP) PO SCH (06:20)
[2021-09-02] MEDS: LEVOTHYROXINE NA 25 MCG TABLET (FP) PO SCH (06:20)
[2021-09-02] MEDS: hydrOXYzine PAMOATE 25 MG CAPSULE (FP) PO SCH ×5 (06:20→23:03)
[2021-09-02] MEDS: chlordiazePOXIDE HCL 25 MG CAPSULE PO SCH ×4 (06:20→23:07)
[2021-09-02] MEDS: LISINOPRIL 20 MG TABLET PO SCH (11:12)
[2021-09-02] MEDS: LOSARTAN POTASSIUM 50 MG TABLET PO SCH (11:13)
[2021-09-02] MEDS: FUROSEMIDE 20 MG TABLET (FP) PO SCH (11:13)
[2021-09-02] MEDS: PRENATAL VITAMINS W/ FOLIC ACID TABLET (FP) PO SCH (11:14)
[2021-09-02] MEDS: FLUoxetine HCL 10 MG CAPSULE PO SCH (11:15)
[2021-09-02] MEDS: LAMOTRIGINE PO SCH (11:16)
[2021-09-02] MEDS ORDERED: INSULIN (NOVOLOG) ASPART 100 UNITS/ML 10ML VIAL ONE ×2 (17:37→23:39)
[2021-09-02] MEDS: THIAMINE HCL 100 MG TABLET (FP) PO SCH (23:07)
[2021-09-03] MEDS ORDERED: chlordiazePOXIDE HCL 10 MG CAPSULE PO PRN
[2021-09-03] MEDS: MELATONIN 5 MG TABLETS PO SCH ×2 (00:21→22:16)
[2021-09-03] MEDS: INSULIN SLIDING SCALE (NOVOLOG) 1 VIAL SQ SCH ×5 (00:22→22:18)
[2021-09-03] MEDS: chlordiazePOXIDE HCL 10 MG CAPSULE PO SCH ×4 (05:41→22:16)
[2021-09-03] MEDS: hydrOXYzine PAMOATE 25 MG CAPSULE (FP) PO SCH ×5 (05:41→22:15)
[2021-09-03] MEDS: LEVOTHYROXINE NA 25 MCG TABLET (FP) PO SCH (06:14)
[2021-09-03] MEDS: metFORMIN HCL 500 MG TABLET (FP) PO SCH (06:14)
[2021-09-03] MEDS: LAMOTRIGINE PO SCH (14:29)
[2021-09-03] MEDS: LOSARTAN POTASSIUM 50 MG TABLET PO SCH (14:29)
[2021-09-03] MEDS: PRENATAL VITAMINS W/ FOLIC ACID TABLET (FP) PO SCH (14:30)
[2021-09-03] MEDS: LITHIUM CARBONATE 300 MG CAPSULE PO SCH ×2 (14:30→22:15)
[2021-09-03] MEDS: LISINOPRIL 20 MG TABLET PO SCH (14:30)
[2021-09-03] MEDS: FUROSEMIDE 20 MG TABLET (FP) PO SCH (14:30)
[2021-09-03] MEDS: PANTOPRAZOLE 20 MG TABLET PO SCH ×2 (14:30→23:54)
[2021-09-03] MEDS: FLUoxetine HCL 10 MG CAPSULE PO SCH (14:34)
[2021-09-03] MEDS ORDERED: INSULIN (NOVOLOG) ASPART 100 UNITS/ML 10ML VIAL ONE ×2 (17:01→22:13)
[2021-09-03] MEDS: THIAMINE HCL 100 MG TABLET (FP) PO SCH (22:16)
[2021-09-03] MEDS: CALCIUM 500MG/VIT-D 200 UNITS COMBO TABLET (FP) PO SCH (22:18)
[2021-09-04] MEDS: chlordiazePOXIDE HCL 10 MG CAPSULE PO SCH ×2 (07:17→17:45)
[2021-09-04] MEDS: metFORMIN HCL 500 MG TABLET (FP) PO SCH (07:18)
[2021-09-04] MEDS: hydrOXYzine PAMOATE 25 MG CAPSULE (FP) PO SCH ×5 (07:18→22:49)
[2021-09-04] MEDS: LEVOTHYROXINE NA 25 MCG TABLET (FP) PO SCH (07:18)
[2021-09-04] MEDS: INSULIN SLIDING SCALE (NOVOLOG) 1 VIAL SQ SCH ×4 (07:41→22:48)
[2021-09-04] MEDS: LOSARTAN POTASSIUM 50 MG TABLET PO SCH (11:08)
[2021-09-04] MEDS: FUROSEMIDE 20 MG TABLET (FP) PO SCH (11:08)
[2021-09-04] MEDS: LAMOTRIGINE PO SCH (11:08)
[2021-09-04] MEDS: LITHIUM CARBONATE 300 MG CAPSULE PO SCH ×2 (11:08→22:49)
[2021-09-04] MEDS: PRENATAL VITAMINS W/ FOLIC ACID TABLET (FP) PO SCH (11:09)
[2021-09-04] MEDS: FLUoxetine HCL 10 MG CAPSULE PO SCH (11:09)
[2021-09-04] MEDS: LISINOPRIL 20 MG TABLET PO SCH (11:09)
[2021-09-04] MEDS: PANTOPRAZOLE 20 MG TABLET PO SCH (11:10)
[2021-09-04] MEDS ORDERED: INSULIN (NOVOLOG) ASPART 100 UNITS/ML 10ML VIAL SQ ONE (17:33)
[2021-09-04] MEDS ORDERED: INSULIN (NOVOLOG) ASPART 100 UNITS/ML 10ML VIAL ONE ×2 (17:38→22:47)
[2021-09-04] MEDS ORDERED: INSULIN (LEVEMIR) 100 UNITS/ML UNITS SQ SCH ×2 (22:00)
[2021-09-04] MEDS: MELATONIN 5 MG TABLETS PO SCH (22:49)
[2021-09-04] MEDS: THIAMINE HCL 100 MG TABLET (FP) PO SCH (22:49)
[2021-09-04] MEDS: CALCIUM 500MG/VIT-D 200 UNITS COMBO TABLET (FP) PO SCH (22:51)
[2021-09-05] MEDS: PANTOPRAZOLE 20 MG TABLET PO SCH ×2 (01:30→14:18)
[2021-09-05] MEDS ORDERED: chlordiazePOXIDE HCL 10 MG CAPSULE PO ONE (05:00)
[2021-09-05] MEDS: hydrOXYzine PAMOATE 25 MG CAPSULE (FP) PO SCH ×3 (06:09→14:18)
[2021-09-05] MEDS ORDERED: metFORMIN HCL 500 MG TABLET (FP) PO SCH (07:00)
[2021-09-05] MEDS: LEVOTHYROXINE NA 25 MCG TABLET (FP) PO SCH (07:35)
[2021-09-05] MEDS: INSULIN SLIDING SCALE (NOVOLOG) 1 VIAL SQ SCH ×2 (07:35→12:33)
[2021-09-05] MEDS: LISINOPRIL 20 MG TABLET PO SCH (10:45)
[2021-09-05] MEDS: PRENATAL VITAMINS W/ FOLIC ACID TABLET (FP) PO SCH (10:45)
[2021-09-05] MEDS: LAMOTRIGINE PO SCH (10:45)
[2021-09-05] MEDS: LOSARTAN POTASSIUM 50 MG TABLET PO SCH (10:45)
[2021-09-05] MEDS: LITHIUM CARBONATE 300 MG CAPSULE PO SCH (10:45)
[2021-09-05] MEDS: FUROSEMIDE 20 MG TABLET (FP) PO SCH (10:45)
[2021-09-05] MEDS: FLUoxetine HCL 10 MG CAPSULE PO SCH (10:46)
[2021-09-05] MEDS ORDERED: INSULIN (LEVEMIR) 100 UNITS/ML UNITS SQ SCH (11:02)
[2021-09-05 13:25] VITALS: BP 128/84; PULSE 95; RESP 20; TEMP 97.3
== END 2021-09-05 14:50 | disposition home or self-care (01) | DRG 774 ==
LOC: SUATTDRO 09:59 → YASAS 09:59 → Y6N 13:06
PROVIDERS: ADMIT Allergy & Immunology; ATTEND Surgery
PROC: HZ2ZZZZ Detoxification Services for Substance Abuse Treatment (ICD-10-PCS; principal; 2021-08-31)
DX: F10.230 Alcohol dependence with withdrawal, uncomplicated (principal); F14.20 Cocaine dependence, uncomplicated; F17.213 Nicotine dependence, cigarettes, with withdrawal; F31.75 Bipolar disorder, in partial remission, most recent episode depressed; F90.9 Attention-deficit hyperactivity disorder, unspecified type; F19.282 Other psychoactive substance dependence with psychoactive substance-induced sleep disorder; I10 Essential (primary) hypertension; E78.5 Hyperlipidemia, unspecified; E11.9 Type 2 diabetes mellitus without complications; E03.9 Hypothyroidism, unspecified; K21.9 Gastro-esophageal reflux disease without esophagitis; J45.20 Mild intermittent asthma, uncomplicated; G62.9 Polyneuropathy, unspecified; E66.01 Morbid (severe) obesity due to excess calories; Z68.42 Body mass index [BMI] 45.0-49.9, adult; Z88.8 Allergy status to other drugs, medicaments and biological substances; Z79.4 Long term (current) use of insulin; Z79.84 Long term (current) use of oral hypoglycemic drugs; Z86.19 Personal history of other infectious and parasitic diseases; Z86.69 Personal history of other diseases of the nervous system and sense organs; Z62.810 Personal history of physical and sexual abuse in childhood; Z91.51 Personal history of suicidal behavior; Z56.0 Unemployment, unspecified
CPT/HCPCS: 36415; 80053; 80178; 81025; 82962; 85027; 86593; 86780; 87811; C9803-CS; U0003; U0005

== ENCOUNTER 2023-09-21 13:27 | Inpatient (IN) | payer OTHER ==
[2023-09-21 14:32] VITALS: BMI 34.5
[2023-09-21] MEDS ORDERED: LOPERAMIDE HCL 2 MG CAPSULE PO PRN (17:50)
[2023-09-21] MEDS ORDERED: NICOTINE POLACRILEX 2 MG GUM BUC PRN (17:50)
[2023-09-21] MEDS ORDERED: BISMUTH SUBSALICYLATE 524 MG/30 ML PO PRN (17:50)
[2023-09-21] MEDS ORDERED: MAG HYDROX/AL HYDROX/SIMETH 30 ML UNIT-DOSE CUP PO PRN (17:50)
[2023-09-21] MEDS ORDERED: MAGNESIUM HYDROX 2400MG/30ML ORAL SUSPENSION 30 ML CUP PO PRN (17:50)
[2023-09-21] MEDS ORDERED: BENZOCAINE/MENTHOL (CHLORASEPTIC ) LOZENGE MM PRN (17:50)
[2023-09-21] MEDS ORDERED: ONDANSETRON *ODT* 4 MG TABLET SL PRN (17:50)
[2023-09-21] MEDS ORDERED: BENZONATATE 200 MG CAPSULE PO PRN (17:50)
[2023-09-21] MEDS ORDERED: guaiFENesin 600 MG TABLET.ER (FP) PO PRN (17:50)
[2023-09-21] MEDS ORDERED: ACETAMINOPHEN 325 MG TABLET (FP) PO PRN (17:50)
[2023-09-21] MEDS ORDERED: DICYCLOMINE HCL 10 MG CAPSULE PO PRN (17:50)
[2023-09-21] MEDS ORDERED: POLYETHYLENE GLYCOL (HEALTHYLAX) 3350 17 GM PACKET PO PRN (17:50)
[2023-09-21] MEDS ORDERED: IBUPROFEN 400 MG TABLET (FP) PO PRN (17:50)
[2023-09-21] MEDS: hydrOXYzine PAMOATE 25 MG CAPSULE (FP) PO PRN (19:35)
[2023-09-21] MEDS: metFORMIN HCL 500 MG TABLET (FP) PO ONE (19:47)
[2023-09-21] MEDS: MELATONIN 5 MG TABLETS PO SCH (22:40)
[2023-09-21] MEDS: THIAMINE 100 MG TABLET PO SCH (23:13)
[2023-09-22] MEDS: metFORMIN HCL 500 MG TABLET (FP) PO SCH (07:31)
[2023-09-22] MEDS: PRENATAL VITAMINS W/ FOLIC ACID TABLET (FP) PO SCH (09:37)
[2023-09-22] MEDS: IBUPROFEN 600 MG TABLET (FP) PO PRN (12:50)
[2023-09-22] MEDS: chlordiazePOXIDE HCL 25 MG CAPSULE PO PRN (12:51)
[2023-09-22] MEDS: chlordiazePOXIDE HCL 25 MG CAPSULE PO SCH (16:55)
[2023-09-22] MEDS ORDERED: INSULIN (NOVOLOG) ASPART 100 UNITS/ML 10ML VIAL ONE (16:57)
[2023-09-22] MEDS: INSULIN ASPART SLIDING SCALE (NOVOLOG) 1 VIAL SQ SCH (18:06)
[2023-09-22] MEDS: METHOCARBAMOL 500 MG TABLET PO PRN (19:08)
[2023-09-22] MEDS ORDERED: QUEtiapine FUMARATE 100 MG TABLET (FP) PO SCH (22:00)
[2023-09-22] MEDS ORDERED: LITHIUM CARBONATE 300 MG CAPSULE PO SCH (22:00)
[2023-09-23] MEDS ORDERED: INSULIN (NOVOLOG) ASPART 100 UNITS/ML 10ML VIAL ONE ×2 (00:11→17:22)
[2023-09-23] MEDS: chlordiazePOXIDE HCL 25 MG CAPSULE PO SCH (05:27)
[2023-09-23 09:04] LABS: POTASSIUM 4.3 mmol/L (3.5-5.1)
[2023-09-23 09:06] LABS: ALBUMIN 2.7 g/dl (3.4-5.0)
[2023-09-23 09:09] LABS: BLOOD UREA NITROGEN 11.1 mg/dL (7-18)
[2023-09-23 09:10] LABS: BASO % 0.8 % (0-2.0); CREATININE 0.7 mg/dL (0.55-1.3); EOS % 5.2 % (0-4.5); HEMATOCRIT 34.7 % (32.4-45.2); HEMOGLOBIN 11.4 GM/dL (10.7-15.3); LYMPH % 33.9 % (8-40); MCH 26.5 pg (25.7-33.7); MEAN CELL VOLUME 80.4 fl (80-96); MEAN PLT VOLUME 8.8 fl (7.5-11.1); NEUT % 51.1 % (42.8-82.8); PLATELET COUNT 207 10^3/uL (134-434); RBC 4.32 M/mm3 (3.60-5.2); RDW 14.7 % (11.6-15.6); WHITE BLOOD COUNT 6.1 K/mm3 (4.0-10.0)
[2023-09-23 09:11] LABS: BILIRUBIN,TOTAL 0.2 mg/dL (0.2-1); TOT PROT 5.9 g/dl (6.4-8.2)
[2023-09-23] MEDS ORDERED: FLUoxetine HCL 20 MG CAPSULE PO SCH (10:00)
[2023-09-23] MEDS: FLUoxetine HCL 10 MG CAPSULE PO SCH (10:44)
[2023-09-23 19:51] VITALS: BP 127/81; PULSE 84; RESP 16; TEMP 98.6
[2023-09-23] MEDS ORDERED: INSULIN (LEVEMIR) 100 UNITS/ML UNITS SQ SCH (22:00)
[2023-09-24] MEDS ORDERED: chlordiazePOXIDE HCL 10 MG CAPSULE PO PRN
[2023-09-24] MEDS ORDERED: chlordiazePOXIDE HCL 10 MG CAPSULE PO SCH (05:00)
[2023-09-25] MEDS ORDERED: chlordiazePOXIDE HCL 10 MG CAPSULE PO SCH (05:00)
[2023-09-26] MEDS ORDERED: chlordiazePOXIDE HCL 10 MG CAPSULE PO ONE (05:00)
== END 2023-09-23 19:45 | disposition left against medical advice (07) | DRG 770 ==
LOC: YASAS 13:27 → Y6N 18:19
PROVIDERS: ADMIT Allergy & Immunology; ATTEND Surgery
PROC: HZ2ZZZZ Detoxification Services for Substance Abuse Treatment (ICD-10-PCS; principal; 2023-09-21)
DX: F10.230 Alcohol dependence with withdrawal, uncomplicated (principal); F14.20 Cocaine dependence, uncomplicated; F17.210 Nicotine dependence, cigarettes, uncomplicated; F31.75 Bipolar disorder, in partial remission, most recent episode depressed; I10 Essential (primary) hypertension; E11.9 Type 2 diabetes mellitus without complications; J45.909 Unspecified asthma, uncomplicated; K21.9 Gastro-esophageal reflux disease without esophagitis; E78.5 Hyperlipidemia, unspecified; G62.89 Other specified polyneuropathies; Z88.8 Allergy status to other drugs, medicaments and biological substances; Z79.84 Long term (current) use of oral hypoglycemic drugs; Z79.4 Long term (current) use of insulin; Z56.0 Unemployment, unspecified
CPT/HCPCS: 36415; 80053; 80178; 82962; 85025; 86593; 86780; 93005; 93010

== ENCOUNTER 2024-01-22 11:11 | Inpatient (IN) | payer OTHER ==
[2024-01-22 11:41] VITALS: BMI 38.0
[2024-01-22] MEDS ORDERED: POLYETHYLENE GLYCOL (HEALTHYLAX) 3350 17 GM PACKET PO PRN (13:05)
[2024-01-22] MEDS ORDERED: NICOTINE POLACRILEX 2 MG GUM BUC PRN (13:05)
[2024-01-22] MEDS ORDERED: MAG HYDROX/AL HYDROX/SIMETH 30 ML UNIT-DOSE CUP PO PRN (13:05)
[2024-01-22] MEDS ORDERED: BENZOCAINE/MENTHOL (CHLORASEPTIC ) LOZENGE MM PRN (13:05)
[2024-01-22] MEDS ORDERED: BENZONATATE 200 MG CAPSULE PO PRN (13:05)
[2024-01-22] MEDS ORDERED: guaiFENesin 600 MG TABLET.ER (FP) PO PRN (13:05)
[2024-01-22] MEDS ORDERED: LOPERAMIDE HCL 2 MG CAPSULE PO PRN (13:05)
[2024-01-22] MEDS ORDERED: NALOXONE (NARCAN) HCL 4 MG/0.1 ML SPRAY NS PRN (13:05)
[2024-01-22] MEDS ORDERED: IBUPROFEN 400 MG TABLET (FP) PO PRN (13:05)
[2024-01-22] MEDS ORDERED: MAGNESIUM HYDROX 2400MG/30ML ORAL SUSPENSION 30 ML CUP PO PRN (13:05)
[2024-01-22] MEDS: metFORMIN HCL 500 MG TABLET (FP) PO SCH (16:54)
[2024-01-22] MEDS: INSULIN ASPART SLIDING SCALE (NOVOLOG) 1 VIAL SQ SCH (16:57)
[2024-01-22] MEDS ORDERED: INSULIN (NOVOLOG) ASPART 100 UNITS/ML 10ML VIAL ONE (17:27)
[2024-01-22] MEDS ORDERED: ALBUTEROL SO4 HFA INHALER IH PRN (17:31)
[2024-01-22] MEDS: DOXYCYCLINE HYCLATE 100 MG CAPSULE PO SCH (20:00)
[2024-01-22] MEDS: MELATONIN 5 MG TABLETS PO SCH (22:54)
[2024-01-22] MEDS: levETIRAcetam 500 MG TABLET (FP) PO SCH (22:54)
[2024-01-22] MEDS: INSULIN (LEVEMIR) 100 UNITS/ML UNITS SQ SCH (22:54)
[2024-01-22] MEDS: THIAMINE 100 MG TABLET PO SCH (22:54)
[2024-01-22] MEDS: hydrOXYzine PAMOATE 25 MG CAPSULE (FP) PO PRN (22:56)
[2024-01-23] MEDS: NALOXONE (NYS OPIOID OVERDOSE PROGRAM) 4 MG/0.1 ML SPRAY NS SCH (08:00)
[2024-01-23] MEDS: PRENATAL VITAMINS W/ FOLIC ACID TABLET (FP) PO SCH (10:11)
[2024-01-23 11:17] LABS: HEMATOCRIT 33.9 % (32.4-45.2); MCH 26.1 pg (25.7-33.7); MCHC 32.5 g/dl (32.0-36.0); MEAN CELL VOLUME 80.3 fl (80-96); MEAN PLT VOLUME 9.1 fl (7.5-11.1); PLATELET COUNT 287 10^3/uL (134-434); RBC 4.22 M/mm3 (3.60-5.2); RDW 16.1 % (11.6-15.6); WHITE BLOOD COUNT 6.3 K/mm3 (4.0-10.0)
[2024-01-23 11:30] LABS: POTASSIUM 4.9 mmol/L (3.5-5.1)
[2024-01-23 11:37] LABS: CALCIUM 9.4 mg/dL (8.5-10.1)
[2024-01-23 11:38] LABS: ALBUMIN 3.1 g/dl (3.4-5.0); BLOOD UREA NITROGEN 19.5 mg/dL (7-18)
[2024-01-23 11:40] LABS: CREATININE 1.1 mg/dL (0.55-1.3)
[2024-01-23 11:41] LABS: BILIRUBIN,TOTAL 0.2 mg/dL (0.2-1)
[2024-01-23 11:42] LABS: TOT PROT 6.6 g/dl (6.4-8.2)
[2024-01-23] MEDS ORDERED: INSULIN (NOVOLOG) ASPART 100 UNITS/ML 10ML VIAL ONE (17:39)
[2024-01-23] MEDS: ACETAMINOPHEN 325 MG TABLET (FP) PO PRN (18:01)
[2024-01-23] MEDS: DOXYCYCLINE HYCLATE 100 MG TABLET PO SCH (18:04)
[2024-01-23] MEDS: IBUPROFEN 600 MG TABLET (FP) PO PRN (22:13)
[2024-01-24 09:54] VITALS: RESP 18
[2024-01-24] MEDS: DEXTROAMPHETAMINE/AMPHETAMINE 20 MG CAP.ER.24H PO SCH (12:38)
[2024-01-24] MEDS: FLUoxetine HCL 10 MG CAPSULE PO SCH (12:38)
[2024-01-24] MEDS: OLANZapine 2.5 MG TABLET PO SCH (12:38)
[2024-01-24] MEDS: lamoTRIgine 25 MG TABLET PO SCH (12:39)
[2024-01-24] MEDS ORDERED: INSULIN (NOVOLOG) ASPART 100 UNITS/ML 10ML VIAL ONE (17:01)
[2024-01-24 17:16] VITALS: BP 142/86; PULSE 86; TEMP 97.7
[2024-01-24] MEDS ORDERED: OLANZapine 5 MG TABLET PO SCH (22:00)
== END 2024-01-24 19:45 | disposition other institution (70) | DRG 774 ==
LOC: YASAS 11:11 → Y6N 14:52
PROVIDERS: ADMIT Allergy & Immunology; ATTEND Surgery
PROC: HZ2ZZZZ Detoxification Services for Substance Abuse Treatment (ICD-10-PCS; principal; 2024-01-22)
DX: F10.230 Alcohol dependence with withdrawal, uncomplicated (principal); F14.20 Cocaine dependence, uncomplicated; F17.210 Nicotine dependence, cigarettes, uncomplicated; F31.75 Bipolar disorder, in partial remission, most recent episode depressed; F19.282 Other psychoactive substance dependence with psychoactive substance-induced sleep disorder; F19.280 Other psychoactive substance dependence with psychoactive substance-induced anxiety disorder; F43.10 Post-traumatic stress disorder, unspecified; I10 Essential (primary) hypertension; J45.20 Mild intermittent asthma, uncomplicated; K21.9 Gastro-esophageal reflux disease without esophagitis; E11.42 Type 2 diabetes mellitus with diabetic polyneuropathy; Z79.4 Long term (current) use of insulin; Z79.84 Long term (current) use of oral hypoglycemic drugs; Z62.810 Personal history of physical and sexual abuse in childhood; Z63.8 Other specified problems related to primary support group
CPT/HCPCS: 36415; 80053; 80307; 82962; 85027; 86593; 86780; 93005; 93010

== ENCOUNTER 2024-01-24 19:57 | Inpatient (IN) | payer OTHER ==
[2024-01-24] MEDS ORDERED: POLYETHYLENE GLYCOL (HEALTHYLAX) 3350 17 GM PACKET PO PRN (20:21)
[2024-01-24] MEDS ORDERED: NALOXONE HCL 0.4 MG/ML VIAL IVPUSH PRN (20:21)
[2024-01-24] MEDS ORDERED: MAG HYDROX/AL HYDROX/SIMETH 30 ML UNIT-DOSE CUP PO PRN (20:21)
[2024-01-24] MEDS ORDERED: ACETAMINOPHEN 325 MG TABLET (FP) PO PRN (20:21)
[2024-01-24] MEDS ORDERED: IBUPROFEN 400 MG TABLET (FP) PO PRN (20:21)
[2024-01-24] MEDS ORDERED: BENZONATATE 200 MG CAPSULE PO PRN (20:21)
[2024-01-24] MEDS ORDERED: NALOXONE (NARCAN) HCL 4 MG/0.1 ML SPRAY NS PRN (20:21)
[2024-01-24] MEDS ORDERED: LOPERAMIDE HCL 2 MG CAPSULE PO PRN (20:21)
[2024-01-24] MEDS ORDERED: NICOTINE POLACRILEX 2 MG GUM BUC PRN (20:21)
[2024-01-24] MEDS ORDERED: guaiFENesin 600 MG TABLET.ER (FP) PO PRN (20:21)
[2024-01-24] MEDS ORDERED: NICOTINE POLACRILEX 2 MG LOZENGE BC PRN (20:21)
[2024-01-24] MEDS ORDERED: MAGNESIUM HYDROX 2400MG/30ML ORAL SUSPENSION 30 ML CUP PO PRN (20:21)
[2024-01-24] MEDS ORDERED: BENZOCAINE/MENTHOL (CHLORASEPTIC ) LOZENGE MM PRN (20:21)
[2024-01-24] MEDS ORDERED: ALBUTEROL SO4 HFA INHALER IH PRN (20:22)
[2024-01-24] MEDS: OLANZapine 5 MG TABLET PO SCH (22:24)
[2024-01-24] MEDS: levETIRAcetam 500 MG TABLET (FP) PO SCH (22:24)
[2024-01-24] MEDS: MELATONIN 5 MG TABLETS PO SCH (22:25)
[2024-01-24] MEDS: THIAMINE 100 MG TABLET PO SCH (22:25)
[2024-01-25] MEDS: IBUPROFEN 600 MG TABLET (FP) PO PRN (05:29)
[2024-01-25] MEDS: metFORMIN HCL 500 MG TABLET (FP) PO SCH (06:18)
[2024-01-25] MEDS: INSULIN ASPART SLIDING SCALE (NOVOLOG) 1 VIAL SQ SCH (06:19)
[2024-01-25] MEDS: lamoTRIgine 25 MG TABLET PO SCH (09:27)
[2024-01-25] MEDS: FLUOXETINE HCL PO SCH (09:27)
[2024-01-25] MEDS: OLANZapine 5 MG TABLET PO SCH (09:28)
[2024-01-25] MEDS: DOXYCYCLINE HYCLATE 100 MG TABLET PO SCH (09:28)
[2024-01-25] MEDS: PRENATAL VITAMINS W/ FOLIC ACID TABLET (FP) PO SCH (09:36)
[2024-01-25] MEDS ORDERED: FLUoxetine HCL 10 MG CAPSULE PO SCH (10:00)
[2024-01-25] MEDS ORDERED: INSULIN (NOVOLOG) ASPART 100 UNITS/ML 10ML VIAL ONE (11:00)
[2024-01-25] MEDS: hydrOXYzine PAMOATE 25 MG CAPSULE (FP) PO PRN (11:59)
[2024-01-25 12:10] VITALS: RESP 18
[2024-01-25] MEDS: METHOCARBAMOL 500 MG TABLET PO PRN (21:12)
[2024-01-26] MEDS ORDERED: INSULIN (NOVOLOG) ASPART 100 UNITS/ML 10ML VIAL ONE (16:51)
[2024-01-27] MEDS ORDERED: INSULIN (NOVOLOG) ASPART 100 UNITS/ML 10ML VIAL ONE (06:03)
[2024-01-27 06:46] VITALS: BP 144/79
[2024-01-28 07:14] VITALS: PULSE 80; TEMP 97.7
[2024-01-28] MEDS ORDERED: INSULIN ASPART SLIDING SCALE (NOVOLOG) 1 VIAL SQ SCH (11:41)
[2024-01-28] MEDS ORDERED: INSULIN (NOVOLOG) ASPART 100 UNITS/ML 10ML VIAL ONE (11:45)
[2024-01-28] MEDS ORDERED: TUBERCULIN PPD 5 TU/0.1ML VIAL ID ONE (11:45)
[2024-01-28] MEDS: TUBERCULIN PPD 5 TU/0.1ML VIAL ID ONE (12:48)
[2024-01-28] MEDS: NALOXONE (NYS OPIOID OVERDOSE PROGRAM) 4 MG/0.1 ML SPRAY NS SCH (13:15)
== END 2024-01-28 13:15 | disposition home or self-care (01) | DRG 772 ==
LOC: YASAS 19:57 → Y3NR 19:58 → Y5N 01-25 11:44
PROVIDERS: ADMIT Psychiatry & Neurology Pain Medicine; ATTEND Family Medicine Addiction Medicine
PROC: HZ42ZZZ Group Counseling for Substance Abuse Treatment, Cognitive-Behavioral (ICD-10-PCS; principal; 2024-01-24)
DX: F10.20 Alcohol dependence, uncomplicated (principal); F14.20 Cocaine dependence, uncomplicated; F17.210 Nicotine dependence, cigarettes, uncomplicated; F31.9 Bipolar disorder, unspecified; I10 Essential (primary) hypertension; E78.5 Hyperlipidemia, unspecified; J44.9 Chronic obstructive pulmonary disease, unspecified; J45.20 Mild intermittent asthma, uncomplicated; E11.42 Type 2 diabetes mellitus with diabetic polyneuropathy; Z79.4 Long term (current) use of insulin; Z79.84 Long term (current) use of oral hypoglycemic drugs; K21.9 Gastro-esophageal reflux disease without esophagitis; Z99.81 Dependence on supplemental oxygen; Z59.02 Unsheltered homelessness
CPT/HCPCS: 82962